=== PATIENT | male | born 1940 | race Caucasian/White ===

== ENCOUNTER 2016-03-31 13:38 | Emergency (ER) | payer MEDICARE, OTHER ==
[2016-03-31] MEDS ORDERED: SODIUM CHLORIDE 0.9% 1,000 ML ONE (14:25)
== END 2016-03-31 17:25 | disposition home or self-care (01) ==
LOC: ER 13:38
DX: R41.0 Disorientation, unspecified (principal); R53.1 Weakness; I47.1 Supraventricular tachycardia; Z86.73 Personal history of transient ischemic attack (TIA), and cerebral infarction without residual deficits
CPT/HCPCS: 36415; 70450; 70551; 71020; 80053; 81001; 82553; 83605; 83735; 84484; 85025; 85610; 85730; 93005; 96360